=== PATIENT | male | born 1990 ===

== ENCOUNTER 2018-04-16 01:58 | Emergency (ER) | payer OTHER ==
[2018-04-16] MEDS ORDERED: Tdap Vaccine 0.5 ml Vial (10-64 yrs) IM ONE ×2 (02:31→03:29)
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
[2018-04-16] MEDS ORDERED: Lidocaine 1% w Epi 1:100,000 Inj ONE (02:58)
[2018-04-16 05:22] VITALS: BP 106/65; PULSE 72; RESP 17; TEMP 98; O2SAT 97
--- NOTE | 2018-04-16 08:54 | CT ---
Date of service: 04/16/2018 PROCEDURE: CT HEAD WITHOUT CONTRAST. HISTORY: head injury COMPARISON: None available. TECHNIQUE: Axial computed tomography images were obtained through the head/brain without intravenous contrast. Radiation dose: Total exam DLP = 832.18 mGy-cm. This CT exam was performed using one or more of the following dose reduction techniques: Automated exposure control, adjustment of the mA and/or kV according to patient size, and/or use of iterative reconstruction technique. FINDINGS: HEMORRHAGE: No intracranial hemorrhage. BRAIN: No mass effect or edema. No atrophy or chronic microvascular ischemic changes. VENTRICLES: Unremarkable. No hydrocephalus. CALVARIUM: Unremarkable. PARANASAL SINUSES: Unremarkable as visualized. No significant inflammatory changes. MASTOID AIR CELLS: Unremarkable as visualized. No inflammatory changes. OTHER FINDINGS: None. IMPRESSION: Normal CT of the Head. No acute intracranial hemorrhage. The preliminary findings for this examination were reported by [employer] at 3:40 a.m. on 04/16/2018. There is concurrence of this report with the preliminary findings.
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
--- NOTE | 2018-04-16 09:31 | RAD ---
PROCEDURE: Right Hand Radiographs. HISTORY: pain 5th metacarpal COMPARISON: None. FINDINGS: BONES: Normal. No fracture. JOINTS: Normal. No osteoarthritic changes. SOFT TISSUES: Normal. OTHER FINDINGS: None. IMPRESSION: Normal right hand radiographs.
== END 2018-04-16 04:46 | disposition home or self-care (01) ==
LOC: H.ER 01:58
DX: S00.11XA Contusion of right eyelid and periocular area, initial encounter (principal); S01.81XA Laceration without foreign body of other part of head, initial encounter; S09.90XA Unspecified injury of head, initial encounter; M79.641 Pain in right hand; Y04.0XXA Assault by unarmed brawl or fight, initial encounter; Y92.89 Other specified places as the place of occurrence of the external cause